=== PATIENT | female | born 1940 | race Two or more races ===

== ENCOUNTER → 2024-12-27 | Outpatient (CLI) | payer MEDICARE, BC, OTHER, SELFPAY ==
[2024-12-27 09:41] LABS: Basophils % (Auto) 1 % (0-2.5); Eosinophils # (Auto) 0.1 Thou/mm3 (0.0-0.5); Eosinophils % (Auto) 2 % (0-10); Hematocrit 37.1 % (36.0-46.0); Hemoglobin 12.7 g/dL (12.0-16.0); Immature Granulocytes % (Auto) 0 % (0-0); Immature Granulocytes Auto 0.01 Thou/mm3 (0.00-0.00); Lymphocytes # (Auto) 1.7 Thou/mm3 (1.0-4.8); Lymphocytes % (Auto) 40 % (10-50); Mean Corpuscular HGB Conc 34.2 g/dl (31.0-37.0); Mean Corpuscular Hemoglobin 31.3 pg (25.0-35.0); Mean Corpuscular Volume 91 fL (80-100); Monocytes # (Auto) 0.3 Thou/mm3 (0.0-0.8); Monocytes % (Auto) 8 % (0-12); Neutrophils # (Auto) 2.1 Thou/mm3 (1.8-7.7); Neutrophils % (Auto) 49 % (37-80); Nucleated Red Blood Cell % 0 /100 WBC (0); Platelet Count 182 Thou/mm3 (140-440); RDW Standard Deviation 42.1 fL (36.4-46.3); Red Blood Count 4.06 Miln/mm3 (4.00-5.20); White Blood Count 4.3 Thou/mm3 (3.6-11.0)
[2024-12-27 09:59] LABS: Alanine Aminotransferase 9 U/L (10-49); Albumin, Serum 4.4 gm/dL (3.4-4.8); Albumin/Globulin Ratio 1.7 (1.2-2.2); Alkaline Phosphatase 73 U/L (46-116); Anion Gap 9 (7-16); Aspartate Amino Transferase 18 U/L (0-34); BUN/Creatinine Ratio 14 Ratio (12-20); Bilirubin,Total 0.6 mg/dL (0.3-1.2); Blood Urea Nitrogen 14 mg/dL (9-23); Calcium 8.9 mg/dL (8.3-10.6); Calcium (Corrected) 8.9 mg/dL (8.5-10.1); Carbon Dioxide 27.3 mMol/L (20.0-31.0); Cardiac Risk Estimate 2.9 RATIO (3.7-5.6); Chloride 108 mMol/L (98-107); Cholesterol 191 mg/dL (132-200); Free T4 (Free Thyroxine) 1.16 ng/dL (0.89-1.76); Globulin 2.6 gm/dL (2.3-3.5); Glucose 101 mg/dL (74-106); HDL Cholesterol 67 mg/dL (40-60); LDL Cholesterol,Calculated 95 mg/dL (0-130); Osmolality,Calculated 287 (275-295); Potassium 4.8 mMol/L (3.4-5.1); Sodium 144 mMol/L (136-145); Thyroid Stimulating Hormone 2.57 uIU/mL (0.55-4.78); Triglycerides 143 mg/dL (30-150); eGFR 55 See Note
== END | disposition home or self-care (01) ==
PROVIDERS: PCP Family Medicine; Referring Provider Family Medicine; Visit Provider Family Medicine
DX: E78.1 Pure hyperglyceridemia (principal); E03.2 Hypothyroidism due to medicaments and other exogenous substances; D50.0 Iron deficiency anemia secondary to blood loss (chronic); Z13.1 Encounter for screening for diabetes mellitus
CPT/HCPCS: 36415; 80053; 80061; 84439; 84443; 85025

== ENCOUNTER 2025-04-29 12:43 | Outpatient (RCR) | payer MEDICARE, BC, SELFPAY ==
--- NOTE | 2025-04-29 14:06 | PTNOTE_ITS ---
PT OP Initial Eval Patient Information Outpatient Physical Therapy Treatment Date: 04/29/25 Visit Reasons: Lower back pain Medical Diagnosis: M54.4 Treatment Dx #1: Back Pain Start of Care: 04/29/25 Date of Onset: 5 months ago Smoking Status Smoking Status: Never smoker Initial Assessment Subjective: Pt is s 85 y/o female reports of chronic back pain (4/10) worsening in the past 5 months. 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 No recent imaging has been done thus far. Pt has limitation with lifting, chores, balance, walking, self care, stairs, and performing recreational activities. Objective: L/S AROM: all motions are WFL except pain with end range extension Hip PROM: all motions are WFL Hip MMTs: grossly 3+/5 Special Test (+) KATARINA's (+) wilson (+) megan test Muscle Length: Hs tightness Palpation: TTP and hypmobile L4-L5 facets Assessment: Pt demonstrate back pain consistent with facet syndrome leading ot difficulty with ADLs. Pt will attempt physical therapy if pain persist Pt will be refer back to provider for further consultation. Short Term and Longterm Goals 1) Increase L/S AROM WNL in 6 wks to be able to sit and stand more than 30 mins 2) Increase hip MMTs grossly to 4-/5 in 6 wks to be able to walk more than 30 mins 3) Increase core strength WFL in 6 wks to be able to perform recreational activities 4) Decrease back pain to 2/10 in 6 wks to be able to perform yardwork 5) Indep with HEP Treatment Plan 1) Manual Therapy 2) Therapeutic Activities 3) Therapeutic Exercises 4) Modalities (ice, heat) Frequency and Duration: 2 x wk for 6 wks Certification Dates: 04/29/25 to 07/29/25 Procedure Charges OP PT Eval Mod Complex 30 minutes: Yes
== END 2025-05-06 23:59 | disposition home or self-care (01) ==
LOC: CPTX 12:43
PROVIDERS: PCP Family Medicine; Referring Provider Family Medicine; Visit Provider Family Medicine
DX: M54.50 Low back pain, unspecified (principal); R26.2 Difficulty in walking, not elsewhere classified; R26.89 Other abnormalities of gait and mobility
CPT/HCPCS: 97162

== ENCOUNTER 2025-06-05 14:30 | Outpatient (RCR) | payer MEDICARE, BC, SELFPAY ==
--- NOTE | 2025-05-13 15:11 | PT.ODAYNRPT ---
PT Outpatient Daily Note OP Daily Note Outpatient Physical Therapy Treatment Date: 05/13/25 Visit Reasons: LOW BACK PAIN Subjective: Pt's ache a little in the spine today. Pt continues to do her exercises instructed by a PT many years ago. Objective: Please see flow chart for list of ther ex performed Assessment: decrease back pain post PT session and reports of less pain in sitting position. Review instructed exercises from previous PT and modified to LTR and SKTC which is more appropriate at this time based on patient's symptoms. Plan: Continue with PT Length of Time (minutes) of Treatment: 30 Minutes Procedure Charges Therapeutic Exercise 30 minutes: Yes
--- NOTE | 2025-05-16 13:43 | PT.ODAYNRPT ---
PT Outpatient Daily Note OP Daily Note Outpatient Physical Therapy Treatment Date: 05/16/25 Visit Reasons: LOW BACK PAIN Subjective: Pt's back feels better since last session. Pt mentioned he notice less lower back pain and more stability with walking. Objective: Please see flow chart for list of ther ex performed Assessment: cues to pace due to performing exercises quickly which breaks down her form with all supine exercises. Pt exhibit Hs tightness and instructed to stretch today and work up to a moderate stretch. Plan: Continue with PT Length of Time (minutes) of Treatment: 30 Minutes Procedure Charges Therapeutic Exercise 30 minutes: Yes
--- NOTE | 2025-05-21 13:34 | PT.ODAYNRPT ---
PT Outpatient Daily Note OP Daily Note Outpatient Physical Therapy Treatment Date: 05/21/25 Visit Reasons: LOW BACK PAIN Subjective: Pt's balance and back pain has been better since starting physical therapy. Every so often patient catches himself tripping over the foot. Objective: Please see flow chart for list of ther ex performed Assessment: added more hip exercises with good tolerance. Cues to correct foot position with monster and side step exercises Plan: Continue with PT Length of Time (minutes) of Treatment: 30 Minutes Procedure Charges Therapeutic Exercise 30 minutes: Yes
--- NOTE | 2025-05-23 14:58 | PT.ODAYNRPT ---
PT Outpatient Daily Note OP Daily Note Outpatient Physical Therapy Treatment Date: 05/23/25 Visit Reasons: LOW BACK PAIN Subjective: Pt's back, walking, and balance is better. Objective: Please see flow chart for list of ther ex performed Assessment: tolerate exercises with minimal pain; less cues to pace with exercises today Plan: Continue with PT Length of Time (minutes) of Treatment: 30 Minutes Procedure Charges Therapeutic Exercise 30 minutes: Yes
--- NOTE | 2025-05-27 14:10 | PT.ODAYNRPT ---
PT Outpatient Daily Note OP Daily Note Outpatient Physical Therapy Treatment Date: 05/27/25 Visit Reasons: LOW BACK PAIN Subjective: Pt reports compliance with HEP, mentioned she does them daily. Objective: Please see flow sheet for ther ex list. Assessment: Pt able to replicate HEP with good technique indicating compliance. Plan: Continue with pOC. Length of Time (minutes) of Treatment: 30 Minutes DIVIDING MACHINE OPERATOR Service Modifier Method I: Divide the number of min of care provided by the DIVIDING MACHINE OPERATOR/MACHINE LEARNING INTERN by the total min of care provided then multiply by 100. If greater than 11 percent modifier is required. Method II: Divide the total time of care provided to patient by 10 (round to the nearest whole number) and add 1 min. to set the minimum time requirement. If treatment total was 60 min., then 10% of 6 min PT CQ modifier applied: CQ Modifier applied Procedure Charges Therapeutic Exercise 30 minutes: Yes
--- NOTE | 2025-05-30 13:28 | PTNOTE_ITS ---
PT Outpatient Daily Note OP Daily Note Outpatient Physical Therapy Treatment Date: 05/30/25 Visit Reasons: LOW BACK PAIN Subjective: Pt reports her back is doing a little better notices her balance is slowly improving. Objective: Please see flow sheet for ther ex list. Assessment: Added hurdles to work on dynamic core stability and balance training, pt some episode of unsteadiness requiring FINANCIAL PROCESSING CLERK. Plan: Continue wtih POC. Length of Time (minutes) of Treatment: 30 Minutes GLASS ENAMEL MIXER Service Modifier Method I: Divide the number of min of care provided by the GLASS ENAMEL MIXER/ROSE by the total min of care provided then multiply by 100. If greater than 11 percent modifier is required. Method II: Divide the total time of care provided to patient by 10 (round to the nearest whole number) and add 1 min. to set the minimum time requirement. If treatment total was 60 min., then 10% of 6 min PT CQ modifier applied: CQ Modifier applied Procedure Charges Therapeutic Exercise 30 minutes: Yes
--- NOTE | 2025-06-03 14:19 | PT.ODAYNRPT ---
PT Outpatient Daily Note OP Daily Note Outpatient Physical Therapy Treatment Date: 06/03/25 Visit Reasons: LOW BACK PAIN Subjective: No new complaints or concerns. Objective: Please see flow sheet for ther ex list. Assessment: progressing interventions per pt tolerance. Plan: Continue with POC. Length of Time (minutes) of Treatment: 30 Minutes MANAGER PHILOSOPHY Service Modifier Method I: Divide the number of min of care provided by the MANAGER PHILOSOPHY/ROSE by the total min of care provided then multiply by 100. If greater than 11 percent modifier is required. Method II: Divide the total time of care provided to patient by 10 (round to the nearest whole number) and add 1 min. to set the minimum time requirement. If treatment total was 60 min., then 10% of 6 min PT CQ modifier applied: CQ Modifier applied Procedure Charges Therapeutic Exercise 30 minutes: Yes
--- NOTE | 2025-06-05 15:41 | PTNOTE_ITS ---
PT Outpatient Daily Note OP Daily Note Outpatient Physical Therapy Treatment Date: 06/05/25 Visit Reasons: LOW BACK PAIN Subjective: Pt reports back has been feeling better, shared that she has been doing exercises at home. Objective: Please see flow sheet for ther ex list. Assessment: Pt requires verbal cues to maintain trunk in neutral, pt complied. Plan: Continue with poC. Length of Time (minutes) of Treatment: 30 Minutes WHALE FISHERMAN Service Modifier Method I: Divide the number of min of care provided by the WHALE FISHERMAN/MARKETING PERFORMANCE ANALYST by the total min of care provided then multiply by 100. If greater than 11 percent modifier is required. Method II: Divide the total time of care provided to patient by 10 (round to the nearest whole number) and add 1 min. to set the minimum time requirement. If treatment total was 60 min., then 10% of 6 min PT CQ modifier applied: CQ Modifier applied Procedure Charges Therapeutic Exercise 30 minutes: Yes
== END 2025-06-06 23:59 | disposition home or self-care (01) ==
LOC: CPTX 14:30
PROVIDERS: PCP Family Medicine; Referring Provider Family Medicine; Visit Provider Family Medicine
DX: M54.50 Low back pain, unspecified (principal); R26.2 Difficulty in walking, not elsewhere classified; R26.89 Other abnormalities of gait and mobility
CPT/HCPCS: 97110

== ENCOUNTER 2025-06-13 14:00 | Outpatient (RCR) | payer MEDICARE, BC, SELFPAY ==
--- NOTE | 2025-06-10 13:38 | PT.ODAYNRPT ---
PT Outpatient Daily Note OP Daily Note Outpatient Physical Therapy Treatment Date: 06/10/25 Visit Reasons: LOW BACK PAIN Subjective: Pt reports back feels stiff. Objective: Please see flow sheet for ther ex list. Assessment: Added bridge exercise, pt completed with good technique, cues to avoid medial knee collapse pt complied. Plan: Continue with pOC. Length of Time (minutes) of Treatment: 30 Minutes NUCLEAR FUEL PROCESSING TECHNICIAN Service Modifier Method I: Divide the number of min of care provided by the NUCLEAR FUEL PROCESSING TECHNICIAN/ROSE by the total min of care provided then multiply by 100. If greater than 11 percent modifier is required. Method II: Divide the total time of care provided to patient by 10 (round to the nearest whole number) and add 1 min. to set the minimum time requirement. If treatment total was 60 min., then 10% of 6 min PT CQ modifier applied: CQ Modifier applied Procedure Charges Therapeutic Exercise 30 minutes: Yes
--- NOTE | 2025-06-13 15:59 | PT.ODS1RPT ---
PT OP Progress/Discharge Note Date of Service: 06/13/25 Progress Note/DC Note Progress Note/Discharge Note: DC Note Patient Information Visit Reasons: LOW BACK PAIN Medical Diagnosis: M54.5 Treatment Dx #1: Back Pain Service Discharge Date: 06/13/25 Status Subjective: Pt's back pain, balance, and strength is much better. Pt has been able to stand, walk, perform chores, and recreational activities with less limitation. At this time Pt feels comfortable being release from care with exercises to continue at home. Objective: L/S AROM: all motions are WFL Hip PROM: all motions are WFL Hip MMTs: grossly 4-/5 Assessment: Pt demonstrate functional L/S mobility and overall strength allowing her to resume ADLs, ambulate, and perform recreational activities. Pt has met goals set in therapy and will no longer benefit from physical therapy. Pt was instructed on HEP last session and educated to continue HEP to maintian overall mobility. Pt performed all exercises safely, thank you for your referrals. Plan: D/C home with HEP and follow up with MD CUTLER Procedure Charges Therapeutic Exercise 30 minutes: Yes
== END 2025-07-06 23:59 | disposition home or self-care (01) ==
LOC: CPTX 14:00
PROVIDERS: PCP Family Medicine; Referring Provider Family Medicine; Visit Provider Family Medicine
DX: M54.50 Low back pain, unspecified (principal); R26.2 Difficulty in walking, not elsewhere classified; R26.89 Other abnormalities of gait and mobility
CPT/HCPCS: 97110

== ENCOUNTER → 2025-06-20 | Outpatient (CLI) | payer MEDICARE, BC, OTHER, SELFPAY ==
[2025-06-20 08:08] LABS: Misc Send Out* See Sep Rpt
[2025-06-20 08:58] LABS: Cardiac Risk Estimate 2.6 RATIO (3.7-5.6); Cholesterol 189 mg/dL (132-200); HDL Cholesterol 72 mg/dL (40-60); LDL Cholesterol,Calculated 96 mg/dL (0-130); Triglycerides 107 mg/dL (30-150)
== END | disposition home or self-care (01) ==
LOC: COPL 07:30
PROVIDERS: PCP Family Medicine; Referring Provider Internal Medicine Cardiovascular Disease; Visit Provider Internal Medicine Cardiovascular Disease
DX: R00.2 Palpitations (principal); R06.09 Other forms of dyspnea
CPT/HCPCS: 36415; 80061; 83880; 86316